=== PATIENT | male | born 1980 | race African-American/Black ===

== ENCOUNTER 2020-05-24 18:53 | Inpatient (IN) | payer OTHER ==
[2020-05-24 18:58] VITALS: BMI 22.4
[2020-05-24] MEDS ORDERED: VANCOMYCIN 1 GM in D5W (PRE-DOCKED) 1,000 MG/250 ML IVPB ONE (19:35)
[2020-05-24] MEDS ORDERED: LACTATED RINGERS SOLUTION 1000 ML INFUS.BAG IV ONE (19:35)
[2020-05-24] MEDS ORDERED: PIPERACILLIN/TAZOB 4.5 GM 4.5 GM in DEXTROSE 5%-WATER 100 ML IVPB ONE (19:36)
[2020-05-24] MEDS ORDERED: METOCLOPRAMIDE HCL INJECTION 10 MG/2 ML VIAL ONE (19:45)
[2020-05-24] MEDS ORDERED: PIPERACILLIN/TAZOB 4.5 GM 4.5 GM/100 ML BAG IVPB ONE (19:52)
[2020-05-24] MEDS ORDERED: VANCOMYCIN 1 GRAM (PRE-DOCKED) 1,000 MG/250 ML BAG IVPB ONE (19:53)
[2020-05-24] MEDS ORDERED: chlordiazePOXIDE HCL 25 MG CAPSULE PO ONE (19:54)
[2020-05-24] MEDS ORDERED: INDOMETHACIN 50 MG CAPSULE PO ONE (20:10)
[2020-05-24] MEDS ORDERED: ACETAMINOPHEN 1000 MG/100 ML VIAL (NON FORMULARY) IVPB ONE (20:10)
[2020-05-24] MEDS ORDERED: chlordiazePOXIDE HCL 25 MG CAPSULE ONE (20:22)
[2020-05-24] MEDS ORDERED: ACETAMINOPHEN INJECTION 100 ML IVPB ONE (20:22)
[2020-05-24 20:33] LABS: BASO % 0.4 % (0-2.0); HEMATOCRIT 32.8 % (35.4-49); HEMOGLOBIN 11.8 GM/dL (11.7-16.9); LYMPH % 6.3 % (8-40); MCH 32.5 pg (25.7-33.7); MCHC 35.8 g/dl (32.0-35.9); MEAN CELL VOLUME 90.7 fl (80-96); MEAN PLT VOLUME 7.6 fl (7.5-11.1); MONO % 11.6 % (3.8-10.2); NEUT % 81.7 % (42.8-82.8); PLATELET COUNT 130 K/MM3 (134-434); RBC 3.62 M/mm3 (4.00-5.60); RDW 13.1 % (11.9-15.9)
[2020-05-24 20:38] LABS: INR 1.2 (0.83-1.09); PROTHROMBIN TIME (PATIENT) 14.4 SEC (9.7-13.0)
[2020-05-24 20:41] LABS: ACTIVATED PTT 32.5 SECONDS (25.2-36.5)
[2020-05-24 20:56] LABS: CHLORIDE 88 mmol/L (98-107); POTASSIUM 3.4 mmol/L (3.5-5.1); SODIUM 124 mmol/L (136-145)
[2020-05-24 20:57] LABS: ALBUMIN 3.3 g/dl (3.4-5.0); ANION GAP 10 MMOL/L (8-16); BLOOD UREA NITROGEN 12.6 mg/dL (7-18); CALCIUM 7.9 mg/dL (8.5-10.1); CO2 26 mmol/L (21-32); GLUCOSE,RANDOM 112 mg/dL (74-106)
[2020-05-24 20:59] LABS: URIC ACID 5.5 mg/dL (2.6-7.2)
[2020-05-24 21:01] LABS: CREATININE 0.9 mg/dL (0.55-1.3); SGOT/AST 205 U/L (15-37); SGPT/ALT 124 U/L (13-61)
[2020-05-24 21:02] LABS: BILIRUBIN,TOTAL 0.9 mg/dL (0.2-1); TOT PROT 7.4 g/dl (6.4-8.2)
[2020-05-24 21:04] LABS: ALK PHOS 106 U/L (45-117)
[2020-05-24] MEDS ORDERED: LIDOCAINE HCL 2% (20ML MULTI-DOSE VIAL) ONE (21:08)
[2020-05-24] MEDS ORDERED: LIDOCAINE HCL 2% (50ML VIAL) SQ ONE (21:08)
[2020-05-24 21:24] LABS: ANISOCYTOSIS 1+; MACROCYTOSIS 0; PLATELET ESTIMATE DECREASED
[2020-05-24] MEDS ORDERED: ACETAMINOPHEN 325 MG TABLET (FP) PO PRN (23:36)
[2020-05-24] MEDS ORDERED: METOCLOPRAMIDE HCL INJECTION 10 MG/2 ML VIAL IVPUSH PRN (23:38)
[2020-05-24] MEDS ORDERED: SODIUM CHLORIDE 2,381 ML IV ONE (23:39)
[2020-05-24] MEDS ORDERED: LORazepam 1 MG TABLET PO PRN (23:41)
[2020-05-25] MEDS ORDERED: FOLIC ACID INJECTION - 1 MG, THIAMINE HCL 100 MG, MULTIVIT INJECTION ADULT 10 ML in SOD... IVPB ONE (00:30)
[2020-05-25] MEDS: LORazepam 1 MG TABLET PO SCH ×6 (00:39→22:42)
[2020-05-25] MEDS ORDERED: LORazepam 2 MG/ML SDV VIAL ONE (00:42)
[2020-05-25] MEDS ORDERED: POTASSIUM CHLORIDE TABS 20 MEQ TABLET.ER (FP) PO ONE ×3 (00:52→08:18)
[2020-05-25 01:09] LABS: MAGNESIUM 0.9 mg/dL (1.8-2.4)
[2020-05-25] MEDS ORDERED: MAGNESIUM 1GM/D5W - 1 GM/100 ML IVPB IVPB ONE (01:27)
[2020-05-25 01:30] LABS: PHOSPHOROUS 2.1 mg/dL (2.5-4.9)
[2020-05-25] MEDS ORDERED: MAGNESIUM SULF 50% (8.12 MEQ/2 ML-1 GM VIAL) IVPB ONE (01:30)
[2020-05-25] MEDS ORDERED: PIPERACILLIN/TAZOB 3.375 GM 3.375 GM in DEXTROSE 5%-WATER - 50 ML IVPB SCH (02:00)
[2020-05-25] MEDS: VANCOMYCIN 1 GRAM (PRE-DOCKED) 1,000 MG/250 ML BAG IVPB SCH ×2 (02:24→09:54)
[2020-05-25] MEDS: PIPERACILLIN/TAZOB 3.375 GM 3.375 GM in DEXTROSE 5%-WATER - 50 ML IVPB SCH ×3 (02:25→18:15)
[2020-05-25 05:55] LABS: EPI CELLS 3 /uL (0-25.1); HYALINE CASTS 0 /uL (0-3.1); PH,URINE 6.5 (5.0-8.0); URINE APPEARANCE CLEAR; URINE BACTERIA 47 /uL (0-1359); URINE BILIRUBIN NEGATIVE (NEGATIVE); URINE COLOR YELLOW; URINE GLUCOSE (UA) NEGATIVE (NEGATIVE); URINE KETONE NEGATIVE (NEGATIVE); URINE LEUK ESTERASE NEGATIVE (NEGATIVE); URINE NITRITE NEGATIVE (NEGATIVE); URINE PROTEIN TRACE (NEGATIVE); URINE RBC 2 /uL (0-23.9); URINE UROBILINOGEN 0.2 mg/dL (0.2-1.0); URINE WBC 7 /uL (0-25.8)
[2020-05-25 06:39] LABS: BASO % 0.1 % (0-2.0); HEMATOCRIT 35.1 % (35.4-49); HEMOGLOBIN 12.4 GM/dL (11.7-16.9); LYMPH % 2.9 % (8-40); MCH 32.2 pg (25.7-33.7); MCHC 35.4 g/dl (32.0-35.9); MEAN CELL VOLUME 91.2 fl (80-96); MEAN PLT VOLUME 7.9 fl (7.5-11.1); MONO % 5.6 % (3.8-10.2); NEUT % 91.4 % (42.8-82.8); PLATELET COUNT 112 K/MM3 (134-434); RBC 3.85 M/mm3 (4.00-5.60); RDW 12.8 % (11.9-15.9); WHITE BLOOD COUNT 8.8 K/mm3 (4.0-10.0)
[2020-05-25 07:15] LABS: POTASSIUM 3.1 mmol/L (3.5-5.1)
[2020-05-25 07:19] LABS: ALBUMIN 3.1 g/dl (3.4-5.0); BLOOD UREA NITROGEN 11.9 mg/dL (7-18); MAGNESIUM 1.4 mg/dL (1.8-2.4)
[2020-05-25 07:22] LABS: CREATININE 0.8 mg/dL (0.55-1.3)
[2020-05-25] MEDS ORDERED: PIPERACILLIN/TAZOB 3.375 GM 3.375 GM/50 ML BAG IVPB ONE ×2 (09:08→18:06)
[2020-05-25] MEDS ORDERED: VANCOMYCIN 1 GRAM (PRE-DOCKED) 1,000 MG/250 ML BAG IVPB ONE (09:49)
[2020-05-25] MEDS: VANCOMYCIN 1 GM in D5W (PRE-DOCKED) 1,000 MG/250 ML IVPB SCH ×2 (09:56→18:55)
[2020-05-25] MEDS ORDERED: VANCOMYCIN 1 GM in D5W (PRE-DOCKED) 1,000 MG/250 ML IVPB SCH (10:00)
[2020-05-25] MEDS ORDERED: MULTIVITAMINS (DAILY MVI) TABLET (FP) ONE (10:39)
[2020-05-25] MEDS ORDERED: FOLIC ACID 1 MG TABLET (FP) ONE (10:39)
[2020-05-25] MEDS ORDERED: THIAMINE HCL 100 MG TABLET (FP) ONE (10:39)
[2020-05-25] MEDS ORDERED: PANTOPRAZOLE 20 MG TABLET PO ONE (10:39)
[2020-05-25] MEDS: FOLIC ACID 1 MG TABLET (FP) PO SCH (10:42)
[2020-05-25] MEDS: PANTOPRAZOLE 20 MG TABLET PO SCH (10:42)
[2020-05-25] MEDS: THIAMINE HCL 100 MG TABLET (FP) PO SCH (10:43)
[2020-05-25] MEDS: MULTIVITAMINS (DAILY MVI) TABLET (FP) PO SCH (10:43)
[2020-05-25 11:12] LABS: ANISOCYTOSIS 1+; MACROCYTOSIS 0; PLATELET ESTIMATE DECREASED
[2020-05-25] MEDS ORDERED: LORazepam 1 MG TABLET ONE ×2 (11:30→17:07)
[2020-05-25] MEDS ORDERED: ACETAMINOPHEN 325 MG TABLET (FP) ONE ×2 (16:21→16:45)
[2020-05-25] MEDS ORDERED: SODIUM CHLORIDE 1,000 ML IV SCH (17:15)
[2020-05-25] MEDS ORDERED: ACETAMINOPHEN 1000 MG/100 ML VIAL (NON FORMULARY) IVPB PRN (17:18)
[2020-05-25] MEDS ORDERED: CLINDAMYCIN 900 MG PREMIX IVPB 900 MG/50 ML BAG IVPB ONE (17:30)
[2020-05-25] MEDS: CLINDAMYCIN 900 MG PREMIX IVPB 900 MG/50 ML BAG IVPB SCH (17:50)
[2020-05-25] MEDS ORDERED: SODIUM CHLORIDE 1,000 ML IV STA (17:54)
[2020-05-25] MEDS: PIPERACILLIN/TAZOB 4.5 GM 4.5 GM in DEXTROSE 5%-WATER 100 ML IVPB SCH (18:20)
[2020-05-25 18:24] LABS: POTASSIUM 3.8 mmol/L (3.5-5.1)
[2020-05-25 18:26] LABS: CALCIUM 8.7 mg/dL (8.5-10.1)
[2020-05-25 18:27] LABS: ALBUMIN 3.1 g/dl (3.4-5.0); BLOOD UREA NITROGEN 7.5 mg/dL (7-18)
[2020-05-25 18:30] LABS: CREATININE 0.8 mg/dL (0.55-1.3)
[2020-05-25 18:32] LABS: BILIRUBIN,TOTAL 0.8 mg/dL (0.2-1); TOT PROT 6.9 g/dl (6.4-8.2)
[2020-05-25] MEDS: VANCOMYCIN/WATER BAGS 1,250 MG/250 ML BAG IVPB SCH (20:10)
[2020-05-26] MEDS ORDERED: PIPERACILLIN/TAZOBACTAM 4.5 GM VIAL IVPB ONE ×3 (02:20→17:27)
[2020-05-26] MEDS ORDERED: DEXTROSE 5%-WATER 100 ML IVPB ONE ×3 (02:20→17:27)
[2020-05-26] MEDS: PIPERACILLIN/TAZOB 4.5 GM 4.5 GM in DEXTROSE 5%-WATER 100 ML IVPB SCH ×3 (02:41→17:42)
[2020-05-26] MEDS: CLINDAMYCIN 900 MG PREMIX IVPB 900 MG/50 ML BAG IVPB SCH ×3 (02:54→17:41)
[2020-05-26] MEDS: VANCOMYCIN/WATER BAGS 1,250 MG/250 ML BAG IVPB SCH ×2 (06:03→18:09)
[2020-05-26] MEDS: LORazepam 0.5 MG TABLET PO SCH ×4 (06:03→22:32)
[2020-05-26] MEDS: PANTOPRAZOLE 20 MG TABLET PO SCH (09:47)
[2020-05-26] MEDS: THIAMINE HCL 100 MG TABLET (FP) PO SCH (09:47)
[2020-05-26] MEDS: FOLIC ACID 1 MG TABLET (FP) PO SCH (09:47)
[2020-05-26] MEDS: MULTIVITAMINS (DAILY MVI) TABLET (FP) PO SCH (09:47)
[2020-05-26] MEDS ORDERED: PROPOFOL 20 ML ONE ×3 (12:55→14:04)
[2020-05-26] MEDS ORDERED: MIDAZOLAM HCL 2 MG/2 ML SINGLE DOSE VIAL ONE ×2 (12:55)
[2020-05-26] MEDS ORDERED: LIDOCAINE HCL/PF 2% SDV 5ML VIAL ONE (12:55)
[2020-05-26] MEDS ORDERED: ceFAZolin SODIUM 1 GM VIAL ONE (13:23)
[2020-05-26] MEDS ORDERED: ceFAZolin SODIUM 1 GM VIAL IVPB ONE (13:40)
[2020-05-26] MEDS ORDERED: BACITRACIN 50,000 UNITS VIAL TP ONE (13:50)
[2020-05-26] MEDS ORDERED: LORazepam 0.5 MG TABLET PO PRN ×2 (14:27)
[2020-05-26] MEDS ORDERED: ACETAMINOPHEN 1000 MG/100 ML VIAL (NON FORMULARY) IVPB PRN (14:27)
[2020-05-26] MEDS ORDERED: LORazepam 2 MG/ML SDV VIAL IVPUSH ONE (14:45)
[2020-05-26] MEDS ORDERED: oxyCODONE HCL 5 MG TABLET PO PRN (17:48)
[2020-05-26] MEDS: oxyCODONE HCL 5 MG TABLET PO PRN (18:05)
[2020-05-26] MEDS: SODIUM CHLORIDE 1,000 ML IV SCH (18:06)
[2020-05-26] MEDS ORDERED: ACETAMINOPHEN 325 MG TABLET (FP) PO ONE (23:36)
[2020-05-27] MEDS: oxyCODONE HCL 5 MG TABLET PO PRN (00:14)
[2020-05-27] MEDS ORDERED: PIPERACILLIN/TAZOBACTAM 4.5 GM VIAL IVPB ONE ×3 (01:19→17:21)
[2020-05-27] MEDS ORDERED: DEXTROSE 5%-WATER 100 ML IVPB ONE ×3 (01:19→17:21)
[2020-05-27] MEDS: CLINDAMYCIN 900 MG PREMIX IVPB 900 MG/50 ML BAG IVPB SCH ×3 (01:33→17:19)
[2020-05-27] MEDS: PIPERACILLIN/TAZOB 4.5 GM 4.5 GM in DEXTROSE 5%-WATER 100 ML IVPB SCH ×3 (01:33→17:23)
[2020-05-27] MEDS ORDERED: LORazepam 0.5 MG TABLET PO ONE ×2 (05:00)
[2020-05-27] MEDS: VANCOMYCIN/WATER BAGS 1,250 MG/250 ML BAG IVPB SCH ×2 (05:48→17:40)
[2020-05-27] MEDS: LORazepam 0.5 MG TABLET PO SCH (05:49)
[2020-05-27] MEDS ORDERED: ACETAMINOPHEN 325 MG TABLET (FP) ONE ×2 (08:49→21:18)
[2020-05-27] MEDS: THIAMINE HCL 100 MG TABLET (FP) PO SCH (10:06)
[2020-05-27] MEDS: MULTIVITAMINS (DAILY MVI) TABLET (FP) PO SCH (10:07)
[2020-05-27] MEDS: PANTOPRAZOLE 20 MG TABLET PO SCH (10:07)
[2020-05-27] MEDS: FOLIC ACID 1 MG TABLET (FP) PO SCH (10:07)
[2020-05-27] MEDS: SODIUM CHLORIDE 1,000 ML IV SCH (17:14)
[2020-05-27] MEDS ORDERED: ACETAMINOPHEN 325 MG TABLET (FP) PO PRN (23:59)
[2020-05-28] MEDS ORDERED: ACETAMINOPHEN 325 MG TABLET (FP) PO ONE
[2020-05-28] MEDS ORDERED: PIPERACILLIN/TAZOBACTAM 4.5 GM VIAL IVPB ONE ×3 (00:33→17:38)
[2020-05-28] MEDS ORDERED: DEXTROSE 5%-WATER 100 ML IVPB ONE ×3 (00:33→17:39)
[2020-05-28] MEDS: PIPERACILLIN/TAZOB 4.5 GM 4.5 GM in DEXTROSE 5%-WATER 100 ML IVPB SCH ×3 (01:24→18:04)
[2020-05-28] MEDS: CLINDAMYCIN 900 MG PREMIX IVPB 900 MG/50 ML BAG IVPB SCH ×3 (03:12→18:04)
[2020-05-28] MEDS: VANCOMYCIN/WATER BAGS 1,250 MG/250 ML BAG IVPB SCH ×2 (07:15→18:04)
[2020-05-28] MEDS: oxyCODONE HCL 5 MG TABLET PO PRN (08:21)
[2020-05-28 09:59] LABS: BASO % 0.3 % (0-2.0); EOS % 0.8 % (0-4.5); HEMATOCRIT 30.9 % (35.4-49); HEMOGLOBIN 10.6 GM/dL (11.7-16.9); LYMPH % 9.5 % (8-40); MCH 31.9 pg (25.7-33.7); MCHC 34.4 g/dl (32.0-35.9); MEAN CELL VOLUME 92.7 fl (80-96); MEAN PLT VOLUME 7.1 fl (7.5-11.1); MONO % 11.8 % (3.8-10.2); NEUT % 77.6 % (42.8-82.8); PLATELET COUNT 318 K/MM3 (134-434); RBC 3.33 M/mm3 (4.00-5.60); RDW 13.1 % (11.9-15.9); WHITE BLOOD COUNT 9.7 K/mm3 (4.0-10.0)
[2020-05-28 10:26] LABS: POTASSIUM 3.5 mmol/L (3.5-5.1)
[2020-05-28] MEDS: THIAMINE HCL 100 MG TABLET (FP) PO SCH (10:27)
[2020-05-28] MEDS: PANTOPRAZOLE 20 MG TABLET PO SCH (10:27)
[2020-05-28 10:28] LABS: BLOOD UREA NITROGEN 4.9 mg/dL (7-18)
[2020-05-28] MEDS: FOLIC ACID 1 MG TABLET (FP) PO SCH (10:28)
[2020-05-28] MEDS: MULTIVITAMINS (DAILY MVI) TABLET (FP) PO SCH (10:28)
[2020-05-28 10:31] LABS: CREATININE 0.8 mg/dL (0.55-1.3)
[2020-05-28 10:33] LABS: BILIRUBIN,TOTAL 0.6 mg/dL (0.2-1); TOT PROT 6.3 g/dl (6.4-8.2)
[2020-05-28 10:51] LABS: ALBUMIN 2.4 g/dl (3.4-5.0); CALCIUM 8.3 mg/dL (8.5-10.1)
[2020-05-28] MEDS: SODIUM CHLORIDE 1,000 ML IV SCH (18:04)
[2020-05-29] MEDS: CLINDAMYCIN 900 MG PREMIX IVPB 900 MG/50 ML BAG IVPB SCH ×2 (01:36→09:54)
[2020-05-29] MEDS: oxyCODONE HCL 5 MG TABLET PO PRN (05:13)
[2020-05-29] MEDS: VANCOMYCIN/WATER BAGS 1,250 MG/250 ML BAG IVPB SCH (05:38)
[2020-05-29 09:45] LABS: BASO % 0.5 % (0-2.0); EOS % 0.9 % (0-4.5); HEMATOCRIT 30.7 % (35.4-49); HEMOGLOBIN 10.5 GM/dL (11.7-16.9); LYMPH % 13.8 % (8-40); MCH 31.9 pg (25.7-33.7); MCHC 34.3 g/dl (32.0-35.9); MEAN PLT VOLUME 7.6 fl (7.5-11.1); MONO % 15.4 % (3.8-10.2); NEUT % 69.4 % (42.8-82.8); PLATELET COUNT 409 K/MM3 (134-434); RDW 13.3 % (11.9-15.9); WHITE BLOOD COUNT 9.4 K/mm3 (4.0-10.0)
[2020-05-29] MEDS: FOLIC ACID 1 MG TABLET (FP) PO SCH (09:54)
[2020-05-29] MEDS: PANTOPRAZOLE 40 MG TABLET PO SCH (09:54)
[2020-05-29] MEDS: MULTIVITAMINS (DAILY MVI) TABLET (FP) PO SCH (09:54)
[2020-05-29] MEDS: THIAMINE HCL 100 MG TABLET (FP) PO SCH (09:54)
[2020-05-29 10:21] LABS: POTASSIUM 3.8 mmol/L (3.5-5.1)
[2020-05-29 10:28] LABS: ALBUMIN 2.6 g/dl (3.4-5.0); BLOOD UREA NITROGEN 3.2 mg/dL (7-18)
[2020-05-29 10:29] LABS: CALCIUM 8.5 mg/dL (8.5-10.1)
[2020-05-29 10:31] LABS: CREATININE 0.7 mg/dL (0.55-1.3)
[2020-05-29 10:33] LABS: BILIRUBIN,TOTAL 0.7 mg/dL (0.2-1); TOT PROT 6.8 g/dl (6.4-8.2)
[2020-05-29] MEDS: CEFTRIAXONE 2 GM in DEXTROSE 5%-WATER 2 GM/100 ML BAG IVPB SCH (17:50)
[2020-05-29] MEDS: SODIUM CHLORIDE 1,000 ML IV SCH (17:51)
[2020-05-29] MEDS ORDERED: ACETAMINOPHEN 1000 MG/100 ML VIAL (NON FORMULARY) IVPB ONE (21:57)
[2020-05-30 07:29] LABS: HEMATOCRIT 31.5 % (35.4-49); HEMOGLOBIN 10.9 GM/dL (11.7-16.9); MCHC 34.4 g/dl (32.0-35.9); MEAN CELL VOLUME 92.9 fl (80-96); MEAN PLT VOLUME 7.2 fl (7.5-11.1); PLATELET COUNT 552 K/MM3 (134-434); RBC 3.39 M/mm3 (4.00-5.60); RDW 13.3 % (11.9-15.9); WHITE BLOOD COUNT 7.3 K/mm3 (4.0-10.0)
[2020-05-30] MEDS: PANTOPRAZOLE 40 MG TABLET PO SCH (09:38)
[2020-05-30] MEDS: MULTIVITAMINS (DAILY MVI) TABLET (FP) PO SCH (09:38)
[2020-05-30] MEDS: THIAMINE HCL 100 MG TABLET (FP) PO SCH (09:39)
[2020-05-30] MEDS: FOLIC ACID 1 MG TABLET (FP) PO SCH (09:39)
[2020-05-30] MEDS: CEFTRIAXONE 2 GM in DEXTROSE 5%-WATER 2 GM/100 ML BAG IVPB SCH (12:12)
[2020-05-30 12:24] VITALS: BP 129/89; PULSE 80; TEMP 98
[2020-05-30] MEDS ORDERED: AMOX TR/POT CLAV 875MG/125MG TABLETS (FP) PO SCH (17:30)
== END 2020-05-30 17:00 | disposition home health service (06) | DRG 317 ==
LOC: JER 18:53 → JERBED 23:20 → J6WEST-2 05-25 22:12
PROVIDERS: ADMIT Hospitalist; ATTEND Internal Medicine
PROC: 0MBP0ZZ Excision of Left Knee Bursa and Ligament, Open Approach (ICD-10-PCS; 2020-05-26)
PROC: 0S9D0ZX Drainage of Left Knee Joint, Open Approach, Diagnostic (ICD-10-PCS; principal; 2020-05-26 13:00)
DX: M70.42 Prepatellar bursitis, left knee (principal); R50.9 Fever, unspecified; R00.0 Tachycardia, unspecified; R74.01 Elevation of levels of liver transaminase levels; F10.239 Alcohol dependence with withdrawal, unspecified; E87.1 Hypo-osmolality and hyponatremia; E86.9 Volume depletion, unspecified
CPT/HCPCS: 36415; 71045-TC-FY; 73130-TC-RT-FY; 73564-TC-LT-FY; 73700-TC-RT; 76705-TC; 80053; 81003; 83605; 83735; 83935; 84100; 84300; 84484; 84550; 85025; 85027; 85379; 85610; 85730; 86850; 86900; 86901; 87040; 87070; 87075; 87077; 87086; 87186; 87205; 93005; 93010; 93971-TC; 94760; 97116-GP; 97161-GP; 99285-25; C9803; J0131; J1644; U0003